=== PATIENT | male | born 1985 | race Caucasian/White ===

== ENCOUNTER 2016-12-18 09:44 | Emergency (ER) | payer OTHER ==
[~2016-12-18] VITALS: Wt 65.8 kg
[~2016-12-18 09:44] MED LIST: AMOXICILLIN500 MG PO; BIAXIN250 MG/51 PO; CLARITIN10 MG PO; CLEOCIN150 MG PO; MOTRIN800 MG PO; NORCO 325 MG-51 TAB PO; PCE500 M1 PO; PEN-VK500 MG PO; PERIDEX 480 ML480 ML PO; TRAMADOL HCL50 MG PO; VICODIN 5/500 505 MG PO; VOLTAREN50 M1 PO
[2016-12-18 10:15] LABS: BASO # 0.1 10*3/uL (0.0-0.1); BASO % 0.8 % (0.0-1.0); EOS # 0.1 10*3/uL (0.0-0.4); EOS % 2.2 % (1.0-4.0); HEMATOCRIT 41.5 % (42.0-52.0); HEMOGLOBIN 14.5 g/dl (14.0-18.0); LYMPH # 2.1 10*3/uL (1.3-4.4); LYMPH % 33.6 % (27.0-41.0); MEAN CORPUSCULAR HGB 33.9 pg (27.0-31.0); MEAN CORPUSCULAR HGB CONC 34.9 g/dl (33.0-37.0); MEAN PLATELET VOLUME 11.3 fl (9.6-12.3); MONO # 0.5 10*3/uL (0.1-1.0); MONO % 8.5 % (3.0-9.0); NEUT # 3.5 10*3/uL (2.3-7.9); NEUT % 54.7 % (47.0-73.0); PLATELET COUNT AUTOMATED 145 10*3/uL (130-400); RED BLOOD COUNT 4.28 10*6/uL (4.50-5.90); RED CELL DISTRI WIDTH 12.2 % (0-14.5); WHITE BLOOD COUNT 6.3 10*3/uL (4.8-10.8)
[2016-12-18 10:29] LABS: ALBUMIN 4.3 gm/dl (3.1-4.5); ALKALINE PHOSPHATASE 61 U/L (45-117); BILIRUBIN, TOTAL 0.5 mg/dl (0.2-1.0); BUN 12 mg/dl (7-24); CARBON DIOXIDE 27 mmol/L (21-32); CHLORIDE 108 mmol/L (98-107); EST GLOM FILT AFRICAN AMERICAN > 60 ml/min; GLUCOSE 91 mg/dL (65-99); MAGNESIUM 2.3 mg/dL (1.5-2.1); POTASSIUM 4.1 mmol/L (3.5-5.1); SGOT/AST 17 IU/L (3-35); SGPT/ALT 32 U/L (12-78); SODIUM 142 mmol/L (136-145); TOTAL PROTEIN 7.6 gm/dL (6.4-8.2)
[2016-12-18 10:31] LABS: C-REACTIVE PROTEIN < 0.29 MG/DL (0-0.3)
[2016-12-18] MEDS ORDERED: PROTONIX40 MG PO (13:59)
== END 2016-12-18 14:13 | disposition home or self-care (01) ==
LOC: ED 09:44
PROVIDERS: Emergency Medicine
DX: K29.00 Acute gastritis without bleeding (principal); Z91.038 Other insect allergy status

== ENCOUNTER 2017-03-13 23:11 | Emergency (ER) | payer OTHER ==
[~2017-03-13] VITALS: Ht 193 cm; Wt 70.3 kg
[~2017-03-13 23:11] MED LIST changes: +PROTONIX40 MG PO
[2017-03-13] MEDS ORDERED: PENICILLIN VK500 MG PO (23:29)
== END 2017-03-14 00:42 | disposition home or self-care (01) ==
LOC: ED 23:11
DX: K04.7 Periapical abscess without sinus (principal); F17.200 Nicotine dependence, unspecified, uncomplicated; Z91.030 Bee allergy status

== ENCOUNTER 2017-06-20 21:19 | Emergency (ER) | payer OTHER ==
[~2017-06-20] VITALS: Ht 190.5 cm; Wt 68.0 kg
[~2017-06-20 21:19] MED LIST changes: +PENICILLIN VK500 MG PO
[2017-06-20] MEDS ORDERED: ANAPROX DS550 MG PO (22:33)
== END 2017-06-20 23:06 | disposition home or self-care (01) ==
LOC: ED 21:19
DX: T14.8 Other injury of unspecified body region (principal); R51 Headache; M54.5 Low back pain; M54.2 Cervicalgia; F17.200 Nicotine dependence, unspecified, uncomplicated; Z91.030 Bee allergy status

== ENCOUNTER 2020-08-22 12:46 | Emergency (ER) | payer OTHER ==
[~2020-08-22] VITALS: Ht 190.5 cm; Wt 70.3 kg
[~2020-08-22 12:46] MED LIST changes: +ANAPROX DS550 MG PO
[2020-08-22] MEDS ORDERED: CELEBREX100 MG PO (16:10)
[2020-08-22] MEDS ORDERED: ROBAXIN-750750 MG PO (16:10)
== END 2020-08-22 16:25 | disposition home or self-care (01) ==
LOC: ED 12:46
DX: M54.16 Radiculopathy, lumbar region (principal); Z91.030 Bee allergy status

== ENCOUNTER 2024-02-17 23:21 | Emergency (ER) | payer BC ==
[~2024-02-17] VITALS: Ht 190.5 cm; Wt 68.0 kg
[~2024-02-17 23:21] MED LIST changes: +CELEBREX100 MG PO; +ROBAXIN-750750 MG PO
[2024-02-17] MEDS ORDERED: AMOX-CLAV 875-1 EACH PO (23:39)
[2024-02-17] MEDS ORDERED: Ketorolac Tromethamine 60 MG/2 ML VIAL IM ONE (23:40)
[2024-02-17] MEDS ORDERED: Amoxicillin/Clavulanate Pota 875 MG TAB PO ONE (23:40)
== END 2024-02-17 23:38 | disposition home or self-care (01) ==
LOC: ED 23:21
DX: H66.92 Otitis media, unspecified, left ear (principal); R09.81 Nasal congestion; Z91.030 Bee allergy status

== ENCOUNTER 2024-04-04 22:25 | Emergency (ER) | payer BC ==
[~2024-04-04] VITALS: Ht 190.5 cm; Wt 65.8 kg
[~2024-04-04 22:25] MED LIST changes: +AMOX-CLAV 875-1 EACH PO
[2024-04-04] MEDS ORDERED: PENICILLIN V POTASSIUM 500 MG TAB PO ONE (22:40)
[2024-04-04] MEDS ORDERED: Ondansetron Hydrochloride 4 MG TAB SL ONE (22:40)
[2024-04-04] MEDS ORDERED: Acetaminophen/Hydrocodone 5 MG/325 MG TABLET PO ONE (22:40)
[2024-04-04] MEDS ORDERED: PENICILLIN VK500 MG PO (22:41)
== END 2024-04-04 22:52 | disposition home or self-care (01) ==
LOC: ED 22:25
DX: K02.9 Dental caries, unspecified (principal); Z91.030 Bee allergy status; Z79.2 Long term (current) use of antibiotics